=== PATIENT | male | born 1955 | race Caucasian/White ===

== ENCOUNTER 2016-12-23 12:47 | Emergency (ER) | payer MEDICARE, MEDICAID ==
[~2016-12-23] VITALS: Ht 180.3 cm; Wt 93.0 kg
[~2016-12-23 12:47] MED LIST: LORA1TAB82; OMEP2.5S
--- NOTE | 2016-12-23 13:12 | NUR ---
PRESENTS TO ER C/O 2 CM LACERATION AND HEMATOMA TO SCALP S/P HEAD V/S CROWBAR. DENIES LOC, NECK, OR BACK PAIN. A/OX 4. BREATHING EVEN AND UNLABORED. NO SOB. VITALS STABLE. SAFETY AND COMFORT MEASURES IN PLACE. AWAITING MD ORDERS.
[2016-12-23] MEDS ORDERED: ACETAMINOPHEN ES 500 MG TABLET ONE (13:19)
--- NOTE | 2016-12-23 13:22 | NUR ---
PATIENT MEDICATED PER MD ORDERS, TAKEN TO CT VIA WHEELCHAIR.
[2016-12-23] MEDS ORDERED: ACETAMINOPHEN ES 500 MG TABLET PO ONE (13:30)
--- NOTE | 2016-12-23 13:45 | NUR ---
PATIENT RETURNED FROM CT.
--- NOTE | 2016-12-23 13:55 | NUR ---
MATT FOWLER AT BEDSIDE FOR SUTURE.
[2016-12-23] MEDS ORDERED: TDAP [DIPH/PERTUSSIS/TET] 0.5 ML VIAL IM ONE ×2 (14:00→14:02)
--- NOTE | 2016-12-23 14:40 | NUR ---
2 ARNOLDO APPLIED TO HEAD LACERATION BY MATT FOWLER. TOLERATED WELL. NO COMPLICATIONS NOTED.
[2016-12-23 14:52] VITALS: BP 118/68
--- NOTE | 2016-12-23 14:57 | NUR ---
Patient discharged to home in stable condition. Written and verbal after care instructions given. Patient verbalizes understanding of instruction.
== END 2016-12-23 14:56 | disposition home or self-care (01) ==
LOC: ER 12:49
DX: S01.01XA Laceration without foreign body of scalp, initial encounter (principal); I10 Essential (primary) hypertension; F17.200 Nicotine dependence, unspecified, uncomplicated; Z23 Encounter for immunization; Z95.5 Presence of coronary angioplasty implant and graft; W22.8XXA Striking against or struck by other objects, initial encounter; Y93.89 Activity, other specified; Y92.89 Other specified places as the place of occurrence of the external cause; Y99.8 Other external cause status
CPT/HCPCS: 70450-TC; 90715; A4606; A6402; A6403; Z7610

== ENCOUNTER 2018-03-02 10:33 | Outpatient (CLI) | payer MEDICARE, OTHER ==
[~2018-03-02 10:33] MED LIST changes: +LORA-259; -LORA1TAB82; -OMEP2.5S; +OMEP2.5S2
[2018-03-02 11:33] LABS: BASOPHILS # (AUTO) 0.1 /CMM (0.0-0.2); BASOPHILS % (AUTO) 0.5 % (0.0-2.0); HEMATOCRIT 47 % (39-51); HEMOGLOBIN 16.7 g/dL (13.5-17.5); LYMPHOCYTES # (AUTO) 2.8 /CMM (0.8-4.8); LYMPHOCYTES % (AUTO) 25.6 % (20.0-44.0); MEAN CORPUSCULAR HGB CONC 35 g/dl (31.0-36.0); MEAN CORPUSCULAR VOLUME 89 fL (80-96); MONOCYTES % (AUTO) 9.1 % (2.0-12.0); NEUTROPHILS # (AUTO) 6.9 /CMM (1.8-8.9); NEUTROPHILS % (AUTO) 63.8 % (43.0-81.0); PLATELET COUNT (AUTO) 213 /CMM (150-450); RED BLOOD CELL COUNT(AUTO) 5.32 MIL/uL (4.5-6.0); WHITE BLOOD COUNT (AUTO) 10.8 K/uL (4.3-11.0)
[2018-03-02 12:13] LABS: ALBUMIN 4.1 g/dL (3.4-5.0); BILIRUBIN,TOTAL 1.1 mg/dL (0.2-1.0); CALCIUM, SERUM 10.2 mg/dL (8.5-10.1); CREATININE 1.4 mg/dL (0.6-1.3); POTASSIUM 3.8 mmol/L (3.5-5.1); TOTAL PROTEIN, SERUM 7.6 g/dL (6.4-8.2)
== END 2018-03-02 23:59 | disposition home or self-care (01) ==
LOC: CT 10:33
PROVIDERS: ATTEND Internal Medicine Interventional Cardiology
DX: R91.8 Other nonspecific abnormal finding of lung field (principal)
CPT/HCPCS: 36415; 71250-TC; 80053-TC; 83880; 85025-TC

== ENCOUNTER 2021-12-24 11:15 | Outpatient (CLI) | payer MEDICARE, OTHER | END 2021-12-24 23:59 | disposition home or self-care (01) | LOC: CT 11:15 | PROVIDERS: ATTEND Internal Medicine Interventional Cardiology | DX: I63.9 Cerebral infarction, unspecified (principal); I25.10 Atherosclerotic heart disease of native coronary artery without angina pectoris; R53.1 Weakness; R06.09 Other forms of dyspnea; Z95.5 Presence of coronary angioplasty implant and graft | CPT/HCPCS: 70450-TC; 71250-TC ==